=== PATIENT | male | born 1955 | race Caucasian/White ===

== ENCOUNTER → 2017-06-01 | Outpatient (CLI) | payer OTHER ==
[~2017-06-01] MED LIST: MIRTAZAPINE; TRAZODONE HCL
[2017-06-01 09:57] LABS: ALANINE AMINOTRANSFERASE 25 U/L (0-55); ALBUMIN 4.1 GM/DL (3.2-4.5); ANION GAP 8 MMOL/L (5-14); ASPARTATE AMINO TRANSFERASE 22 U/L (5-34); BILIRUBIN,TOTAL 0.4 MG/DL (0.1-1.0); BLOOD UREA NITROGEN 22 MG/DL (7-18); BUN/CREATININE RATIO 26; CALCIUM 9.6 MG/DL (8.5-10.1); CARBON DIOXIDE 25 MMOL/L (21-32); CHLORIDE 106 MMOL/L (98-107); CREATININE SERUM 0.85 MG/DL (0.60-1.30); GFR ESTIMATED > 60; GLUCOSE 105 MG/DL (70-105); SODIUM 139 MMOL/L (135-145)
== END ==
LOC: LAB 09:08
PROVIDERS: ATTEND Family Medicine
DX: Z77.21 Contact with and (suspected) exposure to potentially hazardous body fluids (principal)
CPT/HCPCS: 36415; 80053; 86803

== ENCOUNTER 2020-07-27 19:30 | Emergency (ER) | payer OTHER ==
[~2020-07-27] VITALS: Ht 180.3 cm; Wt 86.2 kg
[2020-07-27] MEDS ORDERED: TETANUS,DIPTH,PERTUSS P/F (BOOSTRIX) 0.5 ML VIAL IM ONE ×2 (19:45→20:33)
[2020-07-27] MEDS ORDERED: RX-MUPIROCIN (BACTROBAN) 2% OINT 22 GM TUBE TOP STA (20:27)
[2020-07-27] MEDS ORDERED: AUGMENTIN 875 MG TAB (AMOXICILLIN/CLAVULANATE) PO SCH (20:30)
[2020-07-27] MEDS ORDERED: MUPI22OI2 TP (20:32)
[2020-07-27] MEDS ORDERED: AMOX-358 PO (20:32)
--- NOTE | 2020-07-27 20:32 | ED Integumentary General ---
General Chief Complaint: Bite-Animal/Human/Insect Stated Complaint: DOG BITE Nursing Triage Note: PT AMB TO RM 8 WITH COMPLAINT OF DOG BITE TO LEFT KNEE. STATES WAS BIT BY NEIGHBORS DOG APPROX 40 MIN FELTER TENNIS BALLS. UNKNOWN VACCINATION STATUS OF DOG. UNKNOWN LAST TETANUS SHOT. Source: patient History of Present Illness Date Seen by Provider: Jul 27, 2020 Time Seen by Provider: 20:20 Allergies and Home Medications Allergies Coded Allergies: NKANo Known Allergies (Verified Allergy, Unknown, 01/05/06) Past Jjcnhkm-Sjnrcq-Pklhmw Hx Patient Social History Alcohol Use: Denies Use Recreational Drug Use: No Smoking Status: Current Everyday Smoker Type Used: Cigarettes Recent Foreign Travel: No Contact w/Someone Who Travel: No Recent Infectious Disease Expo: No Recent Hopitalizations: No Immunizations Up To Date Tetanus Booster (TDap): More than 5yrs Past Medical History Surgeries: Yes (ARTHROSCOPIC SX LEFT KNEE 1987 - DR. CINTRON) Respiratory: No Cardiac: No Neurological: No Reproductive Disorders: No Gastrointestinal: No Musculoskeletal: Yes Endocrine: No Psychosocial: Yes Blood Disorders: No Physical Exam Vital Signs Vital Signs - First Documented 07/27/20 19:36 Temp 36.6 Pulse 104 Resp 20 B/P (MAP) 132/94 (107) Pulse Ox 96 O2 Delivery Room Air Capillary Refill : Less Than 3 Seconds Progress/Results/Core Measures Results/Orders My Orders Orders - SELVIN SAEZ DO Dipht,Pertkamryn(Acell),Tet Adult (Boostrix (07/27/20 19:45) Vital Signs/I&O 07/27/20 19:36 Temp 36.6 Pulse 104 Resp 20 B/P (MAP) 132/94 (107) Pulse Ox 96 O2 Delivery Room Air Blood Pressure Mean: 107 Departure Impression Primary Impression: Dog bite of left thigh Additional Impression: Kxdvwvgsgd-sousvrzbl-wbkdzdq (DPT) vaccination administered at current visit Disposition: 01 HOME, SELF-CARE Condition: Stable Departure-Patient Inst. Referrals: CARMEN MABRY MD Patient Instructions: Animal Bites (DC), Diphtheria and Tetanus Toxoids, and Acellular Pertussis Vaccine, Wound Care (DC) Add. Discharge Instructions: CLEAN WOUND TWICE A DAY WITH ANTIBACTERIAL SOAP AND WATER, APPLY ANTIBIOTIC OINTMENT AND FRESH DRESSING TWICE A DAY TYLENOL AND MOTRIN NEEDED FOR PAIN FOLLOW UP WITH DR. MABRY IF PROBLEMS ANIMAL CONTROL CONTACTED TO INVESTIGATE All discharge instructions reviewed with patient and/or family. Voiced understanding. Scripts Mupirocin (Mupirocin) 22 Gm Oint...g. 22 GM TP BID, #1 TUBE Prov: SELVIN SAEZ DO 07/27/20 Amoxicillin/Potassium Clav (Augmentin 875-125 Tablet) 1 Each Tablet 1 EACH PO BID for 10 Days, #20 TAB Prov: SELVIN SAEZ DO 07/27/20 SELVIN SAEZ DO Jul 27, 2020 20:32
[2020-07-27 20:54] VITALS: BP 128/88
== END 2020-07-27 20:54 | disposition home or self-care (01) ==
LOC: EDUNIT# 19:30 → ER 19:31
DX: S71.152A Open bite, left thigh, initial encounter (principal); F17.210 Nicotine dependence, cigarettes, uncomplicated; W54.0XXA Bitten by dog, initial encounter
CPT/HCPCS: 90715; 99284

== ENCOUNTER → 2020-09-03 | Outpatient (CLI) | payer OTHER ==
[~2020-09-03] MED LIST changes: +AMOX-358 PO; +MUPI22OI2 TP
--- NOTE | 2020-09-03 09:19 | Diagnostic Imaging Report ---
CT Lung Screening INDICATION:Tobaccoism, screening for lung cancer, 50 pack year history of smoking TECHNIQUE: Noncontrast, low-dose CT imaging performed according to the lung cancer screening protocol. Auto Exposure Controls were utilize during the CT exam to meet ALARA standards for radiation dose reduction. COMPARISON:None available FINDINGS:A few partially calcified mediastinal and right hilar lymph nodes are present. No pathologically enlarged lymph nodes within the chest. No aneurysmal dilatation of the thoracic aorta. Minimal scattered vascular calcifications. The heart is within normal limits in size. No pericardial effusion. No pleural effusion. No pneumothorax. Biapical pleural parenchymal scarring. A few 5 mm and smaller subpleural solid nodules are noted within the bilateral lung apices, which are favored related to the underlying pleural parenchymal scarring. A couple of calcified granuloma are present within the right lung. Minimal background emphysematous changes, predominantly paraseptal in nature. The lungs otherwise appear clear. The trachea is patent. The minimally visualized upper abdomen is unremarkable. No acute osseous abnormality. IMPRESSION: No acute abnormality. Bilateral sub-6 mm solid pulmonary nodules within the lung apices. These are indeterminate, though favored to relate to pleural parenchymal scarring. Follow-up low-dose screening CT of the chest recommended in 12 months. Minimal background emphysematous changes. Evidence of chronic granulomatous disease. LUNG-RADS CATEGORY:2S: Benign appearance or behavior MODIFIER:S: Minimal background emphysematous changes. Follow-up: Low-dose screening CT of the chest is recommended in 12 months. Dictated by: Dictated on workstation # [id number]
== END ==
LOC: RAD 08:23
PROVIDERS: ATTEND Family Medicine
DX: Z12.11 Encounter for screening for malignant neoplasm of colon (principal); F17.210 Nicotine dependence, cigarettes, uncomplicated; R91.8 Other nonspecific abnormal finding of lung field; J43.9 Emphysema, unspecified

== ENCOUNTER 2020-09-04 08:07 | Outpatient (RCR) | payer OTHER | END 2020-10-29 08:50 | disposition home or self-care (01) | PROVIDERS: ATTEND Family Medicine | DX: M54.6 Pain in thoracic spine (principal); M54.2 Cervicalgia ==

== ENCOUNTER 2020-10-24 14:47 | Outpatient (CLI) | payer OTHER | END 2020-10-24 15:26 | disposition home or self-care (01) | LOC: SLEEP 14:47 | PROVIDERS: ATTEND Family Medicine | DX: G47.61 Periodic limb movement disorder (principal); G47.36 Sleep related hypoventilation in conditions classified elsewhere ==

== ENCOUNTER 2021-11-19 05:38 | Outpatient (CLI) | payer OTHER ==
[~2021-11-19] VITALS: Ht 180.3 cm; Wt 83.6 kg
[2021-11-23] MEDS ORDERED: TADA5TAB4 PO (11:30)
[2021-11-23] MEDS ORDERED: BUPR150T14 PO (11:30)
== END 2021-11-23 11:30 | disposition home or self-care (01) ==
LOC: PREOP 05:38
PROVIDERS: ATTEND Surgery
DX: Z01.818 Encounter for other preprocedural examination (principal)

== ENCOUNTER 2021-11-26 09:34 | Day surgery (SDC) | payer OTHER ==
[2021-11-26] VITALS (11 sets, daily range): BP systolic 104–136; BP diastolic 63–93
[~2021-11-26] VITALS: Ht 180 cm; Wt 83.6 kg
[~2021-11-26 09:34] MED LIST changes: +BUPR150T14 PO; +TADA5TAB4 PO
--- NOTE | 2021-11-26 09:50 | Progress Note-Pre Operative ---
Pre-Operative Progress Note H&P Reviewed The H&P was reviewed, patient examined and no changes noted. Date Seen by Provider: Nov 26, 2021 Time Seen by Provider: 09:45 Date H&P Reviewed: Nov 26, 2021 Time H&P Reviewed: 09:40 Pre-Operative Diagnosis: Symptomatic Chronic calculous cholecystitis POOJA VELIZ APRN Nov 26, 2021 09:50
[2021-11-26] MEDS ORDERED: HYDR-3817 PO (09:52)
--- NOTE | 2021-11-26 09:53 | Discharge Inst-Surgical ---
D/C Lap Instructions-KIDO Reconcile Patient Problems Problems Reviewed?: Yes New, Converted, or Re-Newed RX: RX on Chart Follow Up Appt in 2 weeks Activity as tolerated No driving for 24 hours No driving while on pain medications Incentive Spirometry use every 2 hours while awake Regular Diet Symptoms to Report: Fever over 101 degree F, Nausea/Vomiting Infection Signs and Symptoms to report: Increased redness, Foul odor of wound, Increased drainage Bathing instructions: May shower Operative Area Clean/Dry; Keep incision clean/dry If any problems/questions: Contact your physician or go to Emergency Room POOJA VELIZ APRN Nov 26, 2021 09:53
[2021-11-26] MEDS: LACTATED RINGERS 1,000 ML IV PRN ×2 (10:00→12:31)
[2021-11-26] MEDS ORDERED: morphine INJ 10 MG/ML 1ML (SYR OR VIAL) IVP PRN (10:00)
[2021-11-26] MEDS ORDERED: HYDROcodone/APAP 5 MG/325 MG (LORTAB) TAB PO ONE (10:00)
[2021-11-26] MEDS ORDERED: ACETAMINOPHEN 325 MG TABLET PO PRN (10:00)
[2021-11-26] MEDS ORDERED: ONDANSETRON 4 MG/2 ML (SDV) Z0FRAN IVP PRN ×2 (10:00→13:15)
[2021-11-26] MEDS ORDERED: ceFAZolin INJECTION 1,000 MG VIAL IV ONE (10:30)
[2021-11-26] MEDS ORDERED: LIDOCAINE/EPI 1%-1:200,000 (XYLOCAINE) 30 ML VIAL ONE (10:31)
[2021-11-26] MEDS ORDERED: MIDAZOLAM 2 MG/2 ML (VERSED) VIAL ONE (10:40)
[2021-11-26] MEDS ORDERED: LIDOCAINE PF 2% 5 ML (XYLOCAINE) VIAL ONE (10:40)
[2021-11-26] MEDS ORDERED: SEVOFLURANE (ULTANE) 15 ML INHAL SOLN ONE ×2 (10:40→12:48)
[2021-11-26] MEDS ORDERED: ONDANSETRON 4 MG/2 ML (SDV) Z0FRAN ONE (10:40)
[2021-11-26] MEDS ORDERED: fentaNYL INJ 100 MCG/2 ML AMP ONE (10:40)
[2021-11-26] MEDS ORDERED: proPOfol 200 MG/20 ML (DIPRIVAN) VIAL IV ONE (10:40)
[2021-11-26] MEDS ORDERED: ROCURONIUM 10 MG/ML 5 ML SYRINGE IV ONE (10:40)
[2021-11-26] MEDS ORDERED: MIDAZOLAM 2 MG/2 ML (VERSED) VIAL IVP ONE (11:00)
[2021-11-26] MEDS ORDERED: PHENYLEPHRINE 100 MCG/ML 10 ML (ANESTHESIA) SYR ONE (12:18)
[2021-11-26] MEDS ORDERED: GLYCOPYRROLATE 0.2 MG/ML (ROBINUL) 2 ML VIAL ONE (12:45)
[2021-11-26] MEDS ORDERED: NEOSTIGMINE 3 MG/3 ML VIAL ONE (12:45)
[2021-11-26] MEDS ORDERED: KETOROLAC 30 MG/ML VIAL ONE (12:47)
--- NOTE | 2021-11-26 12:54 | Progress Note-Post Operative ---
Post-Operative Progess Note Surgeon (s)/Tape Sewing Machine Operator (s) Surgeon PREMA GRISSOM MD Tape Sewing Machine Operator: kendal hernandez SUPERVISOR MECHANIC BOILERMAKING Pre-Operative Diagnosis Symptomatic Chronic calculous cholecystitis Post-Operative Diagnosis same Procedure & Operative Findings Date of Procedure 11/26/21 Procedure Performed/Findings laparoscopic cholecystectomy Anesthesia Type get Estimated Blood Loss Estimated blood loss (mL): minimal Specimens/Packing Specimens Removed gallbladder PREMA GRISSOM MD Nov 26, 2021 12:54
[2021-11-26] MEDS ORDERED: HYDROmorphone 2 MG/ML VIAL (DILAUDID) ONE (13:12)
[2021-11-26] MEDS ORDERED: HYDROmorphone 2 MG/ML VIAL (DILAUDID) IV ONE (13:15)
--- NOTE | 2021-11-26 13:46 | OPERATIVE REPORT ---
DATE OF SERVICE: 11/26/2021 ATTENDING PRIMARY CARE PHYSICIAN: Dr. Jennifer Lowe. PREOPERATIVE DIAGNOSIS: Symptomatic chronic calculous cholecystitis. POSTOPERATIVE DIAGNOSIS: Symptomatic chronic calculous cholecystitis. PROCEDURE: Laparoscopic cholecystectomy. SURGEON: Prema Grissom MD. PAINTER HELPER SIGN: Gil Henry APRN. ANESTHESIA: General endotracheal. ESTIMATED BLOOD LOSS: Minimal. FINDINGS: Thick bile as well as small gallstones. DISPOSITION: The patient tolerated the procedure well. INDICATIONS: The patient is a 66-year-old male known to us. We had initially seen in 06/2014 for a colonoscopy. He states that he has had intermittent episodes of diarrhea after eating meals and would have a loose stool within 15-20 minutes after eating a meal. He also reported abdominal bloating and some mild nausea; however, no vomiting. He underwent an ultrasound, which did show a gallbladder polyp as well as sludge in the gallbladder. We feel that this is the likely etiology of his postprandial diarrhea. DESCRIPTION OF PROCEDURE: The patient was brought to the operating room, laid supine on the table. After adequate IV pain and sedative medications and general endotracheal intubation, the abdomen was prepped and draped in standard surgical fashion. A 0.5% Marcaine with epinephrine was used to anesthetize overlying skin left upper abdominal quadrant and a transverse skin incision made using a 15 blade. An 0 silk suture was applied to the medial aspect incision for retraction and a Veress needle inserted with a low opening pressure of 0 mmHg. The abdomen was then insufflated to 15 mmHg pressure. The Veress needle removed, and a 5 mm XL trocar placed followed by a 5 mm 45-degree angle laparoscope visualizing the peritoneal cavity. A 4-quadrant abdominal exploration was performed. There was a slightly distended gallbladder, no gallbladder wall thickening. Under direct visualization, we then proceeded to place a supraumbilical 10 mm port after the skin and peritoneal lining were anesthetized using 0.5% Marcaine with epinephrine and a transverse skin incision made using a 15 blade. In a similar manner, a right upper abdominal quadrant 5 mm port was placed. The patient was then placed in reverse Trendelenburg position as well as plane right side up, left side down. The fundus of the gallbladder was then retracted anteriorly and superiorly. The hepatoduodenal ligament was then dissected using blunt dissection as well as electrocautery on the hook instrument as well as a [place] dissector. The entire critical view of safety was identified including the triangle of Calot as well as the cystic duct and artery as the only two structures going into the gallbladder as well as the cystic plate behind the proximal gallbladder. A timeout was then taken, and the cystic duct and artery were then clipped proximally and distally and cut with EndoShears. The gallbladder was then dissected off of the liver bed using cautery on hook instrument with visualization of good hemostasis as well as the gallbladder was removed through the 10 mm port site using an EndoCatch bag. The 10 mm port site fascia and peritoneum were then closed under direct visualization using a Roldan-Zeke device and 0 Vicryl suture. The abdomen was desufflated and the remaining ports were removed. All skin incisions were closed using 4-0 Monocryl running subcuticular sutures. Wounds were then cleaned and covered with Dermabond. The patient tolerated the procedure well. We will start IV normal pain medication as well as a clear liquid diet. Once he is tolerating clears, has good pain control with oral pain medications, ambulating well, we will discharge him home where he will be instructed to do no heavy lifting or exertion for the next two weeks. Job ID: [id number] DocumentID: [id number] Dictated Date: 11/26/2021 12:59:21 Weigh Tank Operator Date: 11/26/2021 13:46:18 Dictated By: PREMA GRISSOM MD
[2021-11-26] MEDS ORDERED: HYDROcodone/APAP 5 MG/325 MG (LORTAB) TAB ONE (14:30)
--- NOTE | 2021-11-26 14:32 | Anesthesia-General Post-Op ---
General Patient Condition Mental Status/LOC: Same as Preop Cardiovascular: Satisfactory Nausea/Vomiting: Absent Respiratory: Satisfactory Pain: Controlled Complications: Absent Post Op Complications Complications None Follow Up Care/Instructions Patient Instructions None needed. Anesthesia/Patient Condition Patient Condition Patient is doing well, no complaints, stable vital signs, no apparent adverse anesthesia problems. No complications reported per nursing. D/C home per [facility] [place] Criteria: Yes LUPILLO GOLDEN CRNA Nov 26, 2021 14:32
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
== END 2021-11-26 15:05 | disposition home or self-care (01) ==
LOC: SDC 09:34
PROVIDERS: ATTEND Surgery
DX: K80.10 Calculus of gallbladder with chronic cholecystitis without obstruction (principal); F32.A Depression, unspecified; Z79.899 Other long term (current) drug therapy; F17.200 Nicotine dependence, unspecified, uncomplicated
CPT/HCPCS: 87081

== ENCOUNTER → 2022-09-13 | Outpatient (CLI) | payer MEDICARE, OTHER ==
[~2022-09-13] MED LIST changes: +BUPR-105 PO; -BUPR150T14 PO; +HYDR-3817 PO
--- NOTE | 2022-09-13 16:42 | Diagnostic Imaging Report ---
PROCEDURE: US left lower extremity venous. TECHNIQUE: Multiple real-time grayscale images were obtained over the left lower extremity in various projections. Additional duplex Doppler and color Doppler images were also obtained. INDICATION: Left calf pain The veins of the left leg have good color filling and compressibility. There is phasic flow and normal response to augmentation. IMPRESSION: Negative venous Doppler left leg. Dictated by: Dictated on workstation # [id number]
== END ==
LOC: RAD 15:00
PROVIDERS: ATTEND Nurse Practitioner Family
DX: M79.662 Pain in left lower leg (principal)